=== PATIENT | male | born 1990 | race Caucasian/White ===

== ENCOUNTER 2019-07-30 09:53 | Emergency (ER) | payer BC, SELFPAY ==
[2019-07-30 10:03] VITALS: BP 130/88; PULSE 77; RESP 18; TEMP 37.5; O2SAT 96
--- NOTE | 2019-07-30 10:34 | ED.GENADUL_ITS ---
Discharge Plan Disposition Patient Disposition: HOME Discharge Details Chief Complaint: Fever Clinical Impression: Influenza B Primary Care Provider: None,None ED Provider: Sebastian Rice Home Meds and New Rx's Prescriptions: New oseltamivir [Tamiflu] 75 mg capsule 75 mg PO BID Qty: 9 RF: 0 Discontinued hydrocodone-acetaminophen 1 EACH tablet 1 ea PO Q4H PRN PRN (Reason: Pain) Qty: 20 RF: 0 amoxicillin-pot clavulanate 1 TAB tablet 1 ea PO BID Qty: 20 RF: 0 Discharge Instructions Instructions: How to Stop Smoking (ED), Influenza (ED) Additional Instructions: Patient plenty of fluid to stay hydrated. Please stop smoking. Please contact your primary care physician to arrange follow-up. Return to the ER for any worsening or new concerning symptoms. Discharge Data Discharge Date/Time-TO BE ENTERED AT DEPARTURE: 07/30/19 10:44 Medical Decision Making 28-year-old male here with arthralgias, fever, chills, generalized fatigue over the past 2 days. Saturating well in no respiratory distress and hemodynamically stable. Concern for influenza. Patient did not have influenza immunization this year. Flu test positive for influenza B. Patient is within therapeutic window for Tamiflu. I will initiate treatment. Patient has had tick bites and tick exposure over the past 6 months and is concerned that he may have Lyme disease. I will send tick and Lyme panel that will need outpatient follow-up. Patient does not have a primary care physician. I will ask care management to assist in arranging outpatient follow-up. HPI General Mode of arrival: ambulatory . Date/Time Provider Initiated Documentation: 07/30/19 10:07 . Limitations to Documentation: no limitations . Information obtained by: patient . HPI Narrative: 28-year-old male here with general illness. Patient notes arthralgias, fever, chills, generalized fatigue over the past 2 days. Symptoms are moderate. No modifiers. No associated cough. Patient does note tick bites earlier this year. No recent long distance travel. Related Data Home Medications Medication Instructions Recorded Confirmed oseltamivir [Tamiflu] 75 mg PO BID #9 cap 07/30/19 Previous Rx's Medication Instructions Recorded oseltamivir [Tamiflu] 75 mg PO BID #9 cap 07/30/19 Allergies Allergy/AdvReac Type Severity Reaction Status Date / Time No Known Drug Allergies Allergy Unverified 11/11/15 20:47 General Stated Complaint: Fever KILEY: 4 Review of Systems All systems reviewed & are unremarkable except as noted in HPI and below Constitutional Constitutional: Reports body ache(s), Reports chills and Reports fever(s) ENT Ears, Nose, Mouth, and Throat: Reports sore throat Respiratory Respiratory: Denies cough Gastrointestinal Gastrointestinal: Denies vomiting Integumentary/Breasts Skin/Breast: Denies rash PFSH Social History Smoking/Tobacco Use Status: Current every day Alcohol Intake: current Alcohol Intake frequency: a few times a week Drug use: Daily Substance use type: marijuana Do you feel safe at home: Yes Do you feel safe in your relationship?: Yes Exam Const General: cooperative and no acute distress HENMT Head: normocephalic Mouth: moist mucous membranes Eyes Conjunctivae: normal conjunctivae Sclera: normal sclerae Neck Neck: trachea midline and supple Resp Auscultation: clear to auscultation bilaterally, no rales, no rhonchi and no wheezes Cardio Jugular venous pressure: no JVD Rate: regular rate and not tachycardic Rhythm: regular rhythm GI Palpation: soft, not firm, no guarding, no masses, not rigid and nontender Skin General skin exam: no rashes or lesions noted Neuro General: alert, awake and tone normal Extrem General: no edema Psych Appearance: grossly normal Mental Status: mental status grossly normal Course Vital Signs Vital signs: Vital Signs Temperature 37.5 C 07/30/19 10:03 Pulse 77 07/30/19 10:03 Respiratory Rate 18 07/30/19 10:03 Blood Pressure 130/88 07/30/19 10:03 Pulse Oximetry 96 07/30/19 10:03 Temperature 37.5 C 07/30/19 10:03 Temperature Source Temporal Artery Scan 07/30/19 10:03 Pulse 77 07/30/19 10:03 Respiratory Rate 18 07/30/19 10:03 Respiratory Effort Non-Labored 07/30/19 10:07 Blood Pressure 130/88 07/30/19 10:03 Blood Pressure Position Sitting 07/30/19 10:03 Pulse Oximetry 96 07/30/19 10:03 Oxygen Delivery Method Room Air 07/30/19 10:03 Oxygen Flow Rate 0 07/30/19 10:03 Pain Level 6 07/30/19 10:03 Comment 07/30/19 10:03 Lab/Test Results Lab/Test Results: 07/30/19 10:17 Nasopharynx Influenza Types A,B Antigen - Final
[2019-07-30] MEDS: Oseltamivir 75 MG CAP PO (10:41)
[2019-07-30 10:59] LABS: Abs Immature Grans 0.02 k/cumm (0.0-0.09); Absolute Basophil Count 0.01 k/cumm (0.0-0.2); Absolute Lymphocyte Count 1.03 k/cumm (1.2-3.4); Absolute Neutrophil Count 4.57 k/cumm (1.2-6.7); Basophils % 0.1; HCT 46.8 % (40.0-50.0); Immature Grans % 0.3; Lymphocytes % 14.9; Mean Corp. HGB Concentration 34.2 g/dL (32.0-36.0); Mean Corpuscular Hemoglobin 29.2 pg (27.0-33.0); Mean Corpuscular Volume 85.4 fL (80-95); Mean Platelet Volume 8.7 fL (8.0-11.0); Monocytes % 18.8; Neutrophils % 65.9; Platelet Count 259 x1000/uL (130-400); RBC 5.48 m/cumm (4.50-6.00); RBC Distribution Width 12.1 % (11.8-14.1); White Blood Cell Count 6.93 k/cumm (4.4-10.8)
[2019-07-30 11:14] LABS: ALT 34 U/L (16-63); AST 24 U/L (15-37); Albumin 4.4 g/dL (3.4-5.0); Alkaline Phosphatase 59 U/L (46-116); Anion Gap 8.6 mmol/L (3-11); BUN 14 mg/dL (7-18); CO2 29.4 mmol/L (21.0-32.0); CREATININE 1.34 mg/dL (0.70-1.30); Calcium 8.7 mg/dL (8.5-10.1); Chloride 96 mmol/L (98-107); Glucose 97 mg/dL (74-106); Potassium 4.2 mmol/L (3.5-5.1); Sodium 134 mmol/L (136-145); Total Protein 7.5 g/dL (6.4-8.2)
[2019-08-01 11:33] LABS: Lyme Ab w Rflx to Lyme Confirm Negative (Negative)
[2019-08-03 10:09] LABS: Anaplasma phagocytophilum Negative (Negative); B. miyamotoi PCR Negative (Negative); Babesia divergens/MO-1 Negative (Negative); Babesia duncani Negative (Negative); Babesia microti Negative (Negative); Ehrlichia chaffeensis Negative (Negative); Ehrlichia ewingii/canis Negative (Negative); Ehrlichia muris eauclairensis Negative (Negative)
== END 2019-07-30 10:44 | disposition home or self-care (01) ==
LOC: ER 10:49
PROVIDERS: Emergency Provider Student in an Organized Health Care Education/Training Program
DX: J10.89 Influenza due to other identified influenza virus with other manifestations (principal); Z86.19 Personal history of other infectious and parasitic diseases
CPT/HCPCS: 36415; 80053; 87449; 87798; 99283; 85025; 86618